=== PATIENT | male | born 1960 | race Caucasian/White ===

== ENCOUNTER 2019-11-10 20:04 | Emergency (ER) | payer OTHER ==
[~2019-11-10] VITALS: Ht 165.1 cm; Wt 80.0 kg
[~2019-11-10 20:04] MED LIST: FERR324T4 PO
[2019-11-10] MEDS ORDERED: METF-960 PO (20:27)
[2019-11-10 20:30] LABS: GLUCOSE,POINT OF CARE 422 MG/DL (70-110)
[2019-11-10] MEDS ORDERED: SODIUM CHLORIDE 0.9% 2,000 ML IV ONE (21:20)
[2019-11-10] MEDS ORDERED: INSULIN REGULAR, HUMAN 100 UNITS/ML IVP ONE (21:30)
[2019-11-10 22:11] LABS: APPEARANCE,URINE CLEAR (CLEAR); BILIRUBIN,URINE NEGATIVE (NEGATIVE); GLUCOSE, URINE (UA) >=1000 mg/dL (NEGATIVE); KETONES,URINE 15 mg/dL (NEGATIVE); LEUKOCYTE ESTERASE ,URINE NEGATIVE (NEGATIVE); NITRATE,URINE NEGATIVE (NEGATIVE); OCCULT BLOOD,URINE NEGATIVE (NEGATIVE); PROTEIN,URINE NEGATIVE (NEGATIVE)
[2019-11-10 22:24] LABS: HEMATOCRIT 28.5 % (41-53); HEMOGLOBIN 10.2 g/dL (13.5-17.5); MEAN CORPUSCULAR HEMOGLOBIN 30.8 pg (26.0-34.0); MEAN CORPUSCULAR HGB CONC 35.9 G/dL (31.0-37.0); MEAN CORPUSCULAR VOLUME 86 fL (80-100); RED BLOOD CELL COUNT(AUTO) 3.32 MIL/uL (4.50-5.90)
[2019-11-10 22:39] LABS: ALANINE AMINOTRANSFERASE 30 U/L (12-78); ALBUMIN 4.3 g/dL (3.4-5.0); ALKALINE PHOSPHATASE 99 U/L (46-116); ANION GAP 11 mmol/L (8-16); ASPARTATE AMINOTRANSFERASE 18 U/L (15-37); BILIRUBIN,TOTAL 4.5 mg/dL (0.1-1.0); CARBON DIOXIDE 27 mmol/L (22-29); CHLORIDE 101 mmol/L (98-107); CREATININE 0.94 mg/dL (0.60-1.30); GLOMERULAR FILTR. RATE CALC > 60 mL/min (>60); LIPASE 120 U/L (73-393); POTASSIUM 3.9 mmol/L (3.5-5.1); SODIUM SERUM 139 mmol/L (136-145); TOTAL PROTEIN, SERUM 8.1 g/dL (6.4-8.2); UREA NITROGEN, BLOOD 16 mg/dL (7-18)
[2019-11-10 22:40] LABS: GLUCOSE,RANDOM 414 mg/dL (70-110)
[2019-11-10 22:53] LABS: B-TYPE NATRIURETIC PEPTIDE 11 pg/mL (0-100)
[2019-11-10 23:05] LABS: BACTERIA,URINE None Seen /HPF (None Seen); RBC,URINE None Seen /HPF (0-2); SQUAMOUS EPITHELIAL CELL,UR None Seen /LPF (None Seen); WBC,URINE None Seen /HPF (0-5)
[2019-11-10 23:06] LABS: PLATELET COUNT (AUTO) 77 K/uL (150-450)
[2019-11-10 23:09] LABS: BAND NEUTROPHILS % (MANUAL) 3 % (0-5); LYMPHOCYTES % (MANUAL) 20 % (22-44); MONOCYTES % (MANUAL) 6 % (2-9); SEGMENTED NEUTROPHILS % 71 % (40-70)
[2019-11-10 23:09] LABS: GLUCOSE,POINT OF CARE 207 MG/DL (70-110)
[2019-11-11] MEDS ORDERED: MetFORMIN HCL 500 MG ER TABLET PO ONE (00:15)
[2019-11-11] MEDS ORDERED: GlipiZIDE 5 MG TABLET PO ONE (00:15)
[2019-11-11 00:21] VITALS: BP 119/60
[2019-11-11 01:46] LABS: GLUCOSE,POINT OF CARE 219 MG/DL (70-110)
== END 2019-11-11 00:50 | disposition home or self-care (01) ==
LOC: EMS 20:04
DX: E11.65 Type 2 diabetes mellitus with hyperglycemia (principal)
CPT/HCPCS: 36415; 80053; 81001; 82962; 83690; 83880; 84484; 85025; 96361; 96374; 99285; J1815; J7030

== ENCOUNTER 2019-12-30 09:55 | Emergency (ER) | payer OTHER ==
[~2019-12-30] VITALS: Ht 157.5 cm; Wt 74.0 kg
[~2019-12-30 09:55] MED LIST changes: -FERR324T4 PO; +METF-960 PO
[2019-12-30 10:00] VITALS: BP 115/60
[2019-12-30 10:55] LABS: HEMATOCRIT 39.3 % (41-53); HEMOGLOBIN 13.9 g/dL (13.5-17.5); MEAN CORPUSCULAR HEMOGLOBIN 29.9 pg (26.0-34.0); MEAN CORPUSCULAR HGB CONC 35.3 G/dL (31.0-37.0); MEAN CORPUSCULAR VOLUME 85 fL (80-100); RED BLOOD CELL COUNT(AUTO) 4.64 MIL/uL (4.50-5.90); RED CELL DISTRIBUTION WIDTH 24.7 % (11.5-14.5)
[2019-12-30 11:18] LABS: ANION GAP 10 mmol/L (8-16); CALCIUM, TOTAL 9.3 mg/dL (8.8-10.5); CARBON DIOXIDE 24 mmol/L (22-29); CHLORIDE 101 mmol/L (98-107); CREATININE 1.05 mg/dL (0.60-1.30); GLOMERULAR FILTR. RATE CALC > 60 mL/min (>60); GLUCOSE,RANDOM 200 mg/dL (70-110); POTASSIUM 3.7 mmol/L (3.5-5.1); SODIUM SERUM 135 mmol/L (136-145); UREA NITROGEN, BLOOD 24 mg/dL (7-18)
[2019-12-30 11:23] LABS: ALANINE AMINOTRANSFERASE 40 U/L (12-78); ALBUMIN 5.2 g/dL (3.4-5.0); ALKALINE PHOSPHATASE 104 U/L (46-116); ASPARTATE AMINOTRANSFERASE 23 U/L (15-37); BILIRUBIN,TOTAL 7.2 mg/dL (0.1-1.0); LIPASE 82 U/L (73-393); TOTAL PROTEIN, SERUM 9.3 g/dL (6.4-8.2)
[2019-12-30] MEDS ORDERED: IOVERSOL 350 MG/ML 100 ML VIAL ONE (12:13)
[2019-12-30] MEDS ORDERED: SODIUM CHLORIDE 0.9% 100 ML ONE (12:13)
[2019-12-30 12:32] LABS: PLATELET COUNT (AUTO) 105 K/uL (150-450)
[2019-12-30 12:34] LABS: BAND NEUTROPHILS % (MANUAL) 16 % (0-5); LYMPHOCYTES % (MANUAL) 4 % (22-44); MONOCYTES % (MANUAL) 6 % (2-9); SEGMENTED NEUTROPHILS % 74 % (40-70)
[2019-12-30] MEDS ORDERED: SODIUM CHLORIDE 0.9% 1,000 ML IV ONE (15:30)
[2019-12-30] MEDS ORDERED: ONDANSETRON HCL 4 MG/2 ML VIAL IVP ONE (15:30)
== END 2019-12-30 17:51 | disposition home or self-care (01) ==
LOC: EMS 09:58
DX: R10.84 Generalized abdominal pain (principal); E80.6 Other disorders of bilirubin metabolism; R16.1 Splenomegaly, not elsewhere classified; R19.00 Intra-abdominal and pelvic swelling, mass and lump, unspecified site; R11.2 Nausea with vomiting, unspecified; Z90.89 Acquired absence of other organs; Z79.84 Long term (current) use of oral hypoglycemic drugs
CPT/HCPCS: 36415; 74177; 80053; 81002; 83690; 85025; 93005; 99285; J7050; Q9967

== ENCOUNTER 2021-04-12 21:33 | Emergency (ER) | payer OTHER ==
[~2021-04-12] VITALS: Ht 154.9 cm; Wt 70.0 kg
[~2021-04-12 21:33] MED LIST changes: +METF-1211 PO; -METF-960 PO
[2021-04-12] MEDS ORDERED: SODIUM CHLORIDE 0.9% 1,000 ML IV ONE (22:45)
[2021-04-12 23:09] LABS: BASOPHILS % (AUTO) 0.5 % (0.0-2.0); HEMATOCRIT 28.1 % (41-53); HEMOGLOBIN 10.3 g/dL (13.5-17.5); LYMPHOCYTES # (AUTO) 1.2 K/uL (1.0-4.8); LYMPHOCYTES % (AUTO) 24.1 % (22.0-44.0); MEAN CORPUSCULAR HEMOGLOBIN 30.6 pg (26.0-34.0); MEAN CORPUSCULAR HGB CONC 36.7 G/dL (31.0-37.0); MEAN CORPUSCULAR VOLUME 84 fL (80-100); MONOCYTES # (AUTO) 0.3 K/uL (0.1-1.0); MONOCYTES % (AUTO) 5.6 % (2.0-9.0); NEUTROPHILS # (AUTO) 3.5 K/uL (1.8-7.7); NEUTROPHILS % (AUTO) 68.8 % (40.0-70.0); RED BLOOD CELL COUNT(AUTO) 3.36 MIL/uL (4.50-5.90); RED CELL DISTRIBUTION WIDTH 23.3 % (11.5-14.5)
[2021-04-12 23:31] LABS: CALCIUM, TOTAL 8.9 mg/dL (8.8-10.5); CREATININE 1.28 mg/dL (0.60-1.30); POTASSIUM 4.6 mmol/L (3.5-5.1)
[2021-04-12 23:32] LABS: APPEARANCE,URINE CLEAR (CLEAR); BILIRUBIN,URINE NEGATIVE (NEGATIVE); GLUCOSE, URINE (UA) >=1000 mg/dL (NEGATIVE); KETONES,URINE NEGATIVE (NEGATIVE); LEUKOCYTE ESTERASE ,URINE NEGATIVE (NEGATIVE); NITRATE,URINE NEGATIVE (NEGATIVE); OCCULT BLOOD,URINE NEGATIVE (NEGATIVE); PH,URINE 5.5 (5.0-8.0); PROTEIN,URINE NEGATIVE (NEGATIVE)
[2021-04-12 23:57] LABS: PLATELET COUNT (AUTO) 83 K/uL (150-450)
[2021-04-13 00:09] LABS: BACTERIA,URINE None Seen /HPF (None Seen); RBC,URINE None Seen /HPF (0-2); WBC,URINE None Seen /HPF (0-5)
[2021-04-13] MEDS ORDERED: INSULIN REGULAR, HUMAN 100 UNITS/ML SQ ONE (00:15)
[2021-04-13 01:45] VITALS: BP 129/74
[2021-04-13 01:46] LABS: GLUCOSE,POINT OF CARE 254 MG/DL (70-110)
== END 2021-04-13 02:00 | disposition home or self-care (01) ==
LOC: EMS 23:30
DX: E11.65 Type 2 diabetes mellitus with hyperglycemia (principal); Z90.49 Acquired absence of other specified parts of digestive tract
CPT/HCPCS: 36415; 80048; 81001; 82948; 82962 ×2; 85025; 96360; 96361; 96372; 99283; J1815; J7030

== ENCOUNTER 2022-12-16 21:58 | Emergency (ER) | payer OTHER ==
[~2022-12-16] VITALS: Ht 154.9 cm; Wt 85.5 kg
[2022-12-16 22:29] VITALS: TEMP 98.7
[2022-12-16] MEDS ORDERED: DULA1.5P SQ (22:31)
[2022-12-16 22:41] LABS: GLUCOMETER DEV NAME(LOC) ERT.5
[2022-12-16 23:13] LABS: HEMOGLOBIN 8.4 g/dL (13.5-17.5); LYMPHOCYTES # (AUTO) 0.9 K/uL (1.0-4.8); MONOCYTES # (AUTO) 0.4 K/uL (0.1-1.0); RED BLOOD CELL COUNT(AUTO) 2.84 MIL/uL (4.50-5.90)
[2022-12-16 23:17] LABS: BASOPHILS % (AUTO) 0.3 % (0.0-2.0); EOSINOPHILS % (AUTO) 0.5 % (1.0-6.0); HEMATOCRIT 23.6 % (41-53); LYMPHOCYTES % (AUTO) 16.5 % (22.0-44.0); MEAN CORPUSCULAR HEMOGLOBIN 29.7 pg (26.0-34.0); MEAN CORPUSCULAR HGB CONC 35.8 G/dL (31.0-37.0); MEAN CORPUSCULAR VOLUME 83 fL (80-100); MONOCYTES % (AUTO) 7.3 % (2.0-9.0); NEUTROPHILS % (AUTO) 75.4 % (40.0-70.0); RED CELL DISTRIBUTION WIDTH 23.5 % (11.5-14.5)
[2022-12-16 23:28] LABS: PLATELET COUNT (AUTO) 84 K/uL (150-450)
[2022-12-16 23:31] LABS: ALANINE AMINOTRANSFERASE 26 U/L (12-78); ALKALINE PHOSPHATASE 106 U/L (46-116); ANION GAP 15 mmol/L (8-16); ASPARTATE AMINOTRANSFERASE 20 U/L (15-37); BILIRUBIN,TOTAL 6.1 mg/dL (0.1-1.0); CALCIUM, TOTAL 8.1 mg/dL (8.8-10.5); CARBON DIOXIDE 24 mmol/L (22-29); CHLORIDE 95 mmol/L (98-107); CREATININE 1.05 mg/dL (0.60-1.30); GLOMERULAR FILTR. RATE CALC > 60 mL/min (>60); POTASSIUM 4.2 mmol/L (3.5-5.1); SODIUM SERUM 134 mmol/L (136-145); TOTAL PROTEIN, SERUM 7.6 g/dL (6.4-8.2)
[2022-12-16 23:41] LABS: GLUCOSE,RANDOM 475 mg/dL (70-110)
[2022-12-17] MEDS ORDERED: SODIUM CHLORIDE 0.9% 1,000 ML IV ONE (01:00)
[2022-12-17] MEDS ORDERED: INSULIN REGULAR, HUMAN 100 UNITS/ML IVP ONE ×2 (01:00→01:45)
[2022-12-17 04:20] VITALS: BP 107/61; PULSE 80; RESP 18
== END 2022-12-17 04:21 | disposition home or self-care (01) ==
LOC: EMS 21:59
DX: E11.65 Type 2 diabetes mellitus with hyperglycemia (principal); E80.6 Other disorders of bilirubin metabolism; D64.9 Anemia, unspecified; Z90.49 Acquired absence of other specified parts of digestive tract
CPT/HCPCS: 99285; 80053; 85025; 96374; 96361; 82962; J1815; J7030

== ENCOUNTER 2023-11-27 14:50 | Emergency (ER) | payer OTHER ==
[~2023-11-27] VITALS: Ht 162.6 cm; Wt 79.5 kg
[~2023-11-27 14:50] MED LIST changes: +DULA1.5P SQ; -METF-1211 PO
[2023-11-27 14:57] VITALS: BP 129/77; PULSE 82; RESP 18; TEMP 98
[2023-11-27] MEDS ORDERED: DULA0.75 SQ (15:03)
[2023-11-27] MEDS ORDERED: ATOR10TA69 PO (16:06)
[2023-11-27] MEDS ORDERED: LOSA-381 PO (16:06)
[2023-11-27] MEDS: SODIUM CHLORIDE 0.9% 2,000 ML IV ONE (16:13)
[2023-11-27] MEDS: INSULIN REGULAR, HUMAN 100 UNITS/ML IVP ONE (16:14)
[2023-11-27 16:26] LABS: BASOPHILS % (AUTO) 0.5 % (0.0-2.0); EOSINOPHILS % (AUTO) 1.1 % (1.0-6.0); HEMATOCRIT 24.7 % (41-53); HEMOGLOBIN 8.9 g/dL (13.5-17.5); LYMPHOCYTES # (AUTO) 0.8 K/uL (1.0-4.8); LYMPHOCYTES % (AUTO) 20.6 % (22.0-44.0); MEAN CORPUSCULAR HEMOGLOBIN 30.2 pg (26.0-34.0); MEAN CORPUSCULAR HGB CONC 35.9 G/dL (31.0-37.0); MEAN CORPUSCULAR VOLUME 84 fL (80-100); MONOCYTES # (AUTO) 0.1 K/uL (0.1-1.0); MONOCYTES % (AUTO) 3.8 % (2.0-9.0); NEUTROPHILS # (AUTO) 2.7 K/uL (1.8-7.7); PLATELET COUNT (AUTO) 72 K/uL (150-450); RED BLOOD CELL COUNT(AUTO) 2.94 MIL/uL (4.50-5.90); RED CELL DISTRIBUTION WIDTH 23.5 % (11.5-14.5); WHITE BLOOD COUNT (AUTO) 3.7 K/uL (4.5-11.0)
[2023-11-27 16:28] LABS: APPEARANCE,URINE CLEAR (CLEAR); BILIRUBIN,URINE NEGATIVE (NEGATIVE); COLOR,URINE LIGHT YELLOW (YELLOW); GLUCOSE, URINE (UA) >=1000 mg/dL (NEGATIVE); LEUKOCYTE ESTERASE ,URINE NEGATIVE (NEGATIVE); NITRATE,URINE NEGATIVE (NEGATIVE); OCCULT BLOOD,URINE NEGATIVE (NEGATIVE); PH,URINE 5.5 (5.0-8.0); PROTEIN,URINE NEGATIVE (NEGATIVE); SPECIFIC GRAVITIY, URINE 1.029 (1.003-1.030); UROBILINOGEN,URINE <=1.0 mg/dL (<=1.0)
[2023-11-27 16:47] LABS: LACTIC ACID 0.8 mmol/L (0.4-2.0); TROPONIN I-HIGH SENSITIVITY 7 ng/L (<76)
[2023-11-27 16:50] LABS: RBC MORPHOLOGY COMMENT ABNORMAL RBC MORPH
[2023-11-27 16:51] LABS: ALANINE AMINOTRANSFERASE 21 U/L (12-78); ALBUMIN 3.8 g/dL (3.4-5.0); ALKALINE PHOSPHATASE 120 U/L (46-116); ANION GAP 9 mmol/L (8-16); ASPARTATE AMINOTRANSFERASE 14 U/L (15-37); BILIRUBIN,TOTAL 5.3 mg/dL (0.1-1.0); CALCIUM, TOTAL 7.8 mg/dL (8.8-10.5); CARBON DIOXIDE 25 mmol/L (22-29); CHLORIDE 101 mmol/L (98-107); CREATININE 1.04 mg/dL (0.60-1.30); GLOMERULAR FILTR. RATE CALC > 60 mL/min (>60); LIPASE 80 U/L (16-77); POTASSIUM 3.8 mmol/L (3.5-5.1); SODIUM SERUM 135 mmol/L (136-145); TOTAL PROTEIN, SERUM 7.2 g/dL (6.4-8.2); UREA NITROGEN, BLOOD 17 mg/dL (7-18)
[2023-11-27 16:52] LABS: BACTERIA,URINE None Seen /HPF (None Seen); RBC,URINE None Seen /HPF (0-2); SQUAMOUS EPITHELIAL CELL,UR None Seen /LPF (None Seen); WBC,URINE None Seen /HPF (0-5)
[2023-11-27 16:54] LABS: GLUCOSE,RANDOM 553 mg/dL (70-110)
[2023-11-27 17:46] LABS: GLUCOMETER DEV NAME(LOC) ERT.5; GLUCOSE,POINT OF CARE 324 MG/DL (70-110)
== END 2023-11-27 18:48 | disposition home or self-care (01) ==
LOC: EMS 14:50
DX: K74.60 Unspecified cirrhosis of liver (principal); D64.9 Anemia, unspecified; Z90.49 Acquired absence of other specified parts of digestive tract
CPT/HCPCS: 99285; 96374; 76700; 71045; 96361; 80048; 80076; 81001; 82962; 83605; 83690; 84484; 85025; 36415; 93005; J1815; J7030

== ENCOUNTER 2025-01-04 22:10 | Emergency (ER) | payer OTHER ==
[~2025-01-04] VITALS: Ht 162.6 cm; Wt 80.0 kg
[~2025-01-04 22:10] MED LIST changes: +ATOR10TA69 PO; +DULA0.75 SQ; -DULA1.5P SQ; +LOSA-381 PO
[2025-01-04 22:22] VITALS: BP 117/65; PULSE 76; RESP 18; TEMP 98.6; O2SAT 99
[2025-01-05 00:37] LABS: RED BLOOD CELL COUNT(AUTO) 3.34 MIL/uL (4.50-5.90); RED CELL DISTRIBUTION WIDTH 23.6 % (11.5-14.5); WHITE BLOOD COUNT (AUTO) 5.3 K/uL (4.5-11.0)
[2025-01-05 00:39] LABS: CALCIUM, TOTAL 8.4 mg/dL (8.8-10.5); CREATININE 1.07 mg/dL (0.60-1.30); GLOMERULAR FILTR. RATE CALC > 60 mL/min (>60); GLUCOSE,RANDOM 316 mg/dL (70-110); SODIUM SERUM 136 mmol/L (136-145); UREA NITROGEN, BLOOD 14 mg/dL (7-18)
[2025-01-05 00:43] LABS: PLATELET COUNT (AUTO) 89 K/uL (150-450); RBC MORPHOLOGY COMMENT ABNORMAL RBC MORPH
[2025-01-05] MEDS: INSULIN LISPRO 100 UNITS/ML SQ ONE (02:07)
== END 2025-01-05 02:15 | disposition home or self-care (01) ==
LOC: EMS 22:10
DX: E11.65 Type 2 diabetes mellitus with hyperglycemia (principal); Z79.899 Other long term (current) drug therapy
CPT/HCPCS: 80048; 82009; 82962; 85025; 99283; J1815